=== PATIENT | male | born 2000 | race African-American/Black ===

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

== ENCOUNTER 2022-05-07 11:37 | Emergency (ER) | payer MEDICAID, SELFPAY ==
[2022-05-07 11:44] VITALS: BP 116/74; PULSE 63; RESP 16; TEMP 37; O2SAT 96
[2022-05-07 12:39] LABS: Bilirubin Negative (Negative); Blood Negative (Negative); Clarity Clear (Clear); Glucose Negative (Negative); Ketones Negative (Negative); Leukocyte Esterase Negative (Negative); Nitrite Negative (Negative); Specific Gravity 1.015 (1.005-1.025); Urobilinogen 0.2 EU/dL (Up TO 0.2); pH 6.5 (5-8)
[2022-05-07 12:50] LABS: *AMPHETAMINES SCREEN URINE Negative (Negative); *BARBITURATES SCREEN URINE Negative (Negative); *BENZODIAZEPINES SCREEN URINE Negative (Negative); Cannabinoids THC Positive (Negative); Cocaine Screen,Urine Negative (Negative); METHADONE URINE SCREEN Negative (Negative); OPIATES URINE SCREEN Negative (Negative)
[2022-05-07 12:52] LABS: Tricyclic Antidepressants Negative (Negative)
--- NOTE | 2022-05-07 13:01 | NUR.NOTE ---
Patient laying in bed with hands over ears states, The voices are loud. I offered to close door as it is a bit noisy in ER, patient stated, No, not the real voices. I'm sorry, they're just there. Will notify RN of auditorial hallucinations Nursing Note:
--- NOTE | 2022-05-07 14:24 | ED.GENADUL_ITS ---
Discharge Plan Disposition Patient Disposition: HOME Condition: Stable Discharge Details Clinical Impression: Transgender, Depressive disorder Primary Care Provider: Keith Field ED Provider: Lena Marlow Home Meds and New Rx's Prescriptions: Continued estradiol 1 mg Tablet 1 mg PO 2XD Discharge Instructions Additional Instructions: Please follow-up to establish care with mental health provider Follow-up with [facility] for your medications Please return should you have new or worsening complaints Referrals: [facility] [Provider Group] Discharge Data Discharge Date/Time-TO BE ENTERED AT DEPARTURE: 05/07/22 14:55 Medical Decision Making Patient appears well, she is articulate and insightful She denies specific plan to harm her self She has baseline auditory and visual hallucinations, she states this is not new Was evaluated by mental health and safety plans, will be evaluated daily for NKA chest Stable for discharge home at this time, denies current suicidal ideations are comfortable plan per patient. Fully alert, oriented, decisional capacity throughout the encounter Medical Records Medical records reviewed: Yes I reviewed the patient's medical records. Lab Data Lab results reviewed: Yes I reviewed the patient's lab results. HPI General Date/Time Provider Initiated Documentation: 05/07/22 11:48 . HPI Narrative: This 22-year-old male transitioning to female presents with report of intermittent episodes of self-harm, suicidal ideation, depression, anxiety. Patient states that she has been harming herself by hitting her head on the wall, Herself, and pulling her hair out. She reports that she stopped taking her medication. She does not have a specific plan to take her Lasix per patient. She does have auditory visual hallucinations, she states this is not new. She denies any illicit drug use. She denies any regular alcohol consumption. She denies any current pain complaints. She has not seen a counselor for years per patient. She denies any concerns today. Related Data Home Medications Medication Instructions Recorded Confirmed estradiol 1 mg tablet 1 mg PO 2XD 05/07/22 05/07/22 Allergies Allergy/AdvReac Type Severity Reaction Status Date / Time No Known Allergies Allergy Verified 12/13/21 10:22 General Stated Complaint: PsychEval ERIKA: 2 Review of Systems All systems reviewed & are unremarkable except as noted in HPI and below PFSH All Active Problems (Updated 05/07/22 @ 14:27 by JANELLE To) Back pain (Chronic) Low and mid back pain. + straight leg raise. Referred to Spine clinic. Rectal bleeding (Acute) Painless rectal bleeding even when not engaging in sexual activities. Labs WNL. Referral to GI Transgender (Chronic) Male to female. Prefers she pronoun. NAME: Janet Bipolar disorder (Chronic) Depressive disorder (Chronic 06/08/14) BMI (body mass index), pediatric, 5% to less than 85% for age (Chronic 04/25/16) Attention deficit hyperactivity disorder (Chronic 08/19/14) Medical History (Updated 05/07/22 @ 14:27 by JANELLE To) ADHD (attention deficit hyperactivity disorder) anxiety Asthma Bipolar 1 disorder Major depressive disorder Oppositional defiant disorder Strabismus Surgical History eye surgery Family History Mother Essential hypertension Hyperlipidemia Mental disorder Bipolar disorder dissaocative identity disorder GERD (gastroesophageal reflux disease) Asthma Grandfather Substance abuse Diabetes PGF Alcohol abuse Essential hypertension Mental disorder GERD (gastroesophageal reflux disease) Grandmother Substance abuse Alcohol abuse Essential hypertension Heart disease Mental disorder GERD (gastroesophageal reflux disease) Brother Mental disorder Asthma Other Stroke Social History (Updated 08/30/21 @ 13:10 by Mily Penn RN, RN) Smoking/Tobacco Use Status: Former Tobacco Use Quit Date: 08/22/21 Quit status: considering quitting Smoking risk assessment performed?: Yes Alcohol Intake: current Alcohol Intake frequency: a few times a week Drug use: Never Substance use type: marijuana Household members: other Details: Lives in a transitional housing for physical address, apt. 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 Pets and animals: No Seatbelt use: always Helmet use: Yes Working smoke detector in home: Yes Fire extinguisher in home: Yes Carbon monox detector in home: Yes Do you feel safe at home: Yes Do you feel safe in your relationship?: Yes Exam Const General: cooperative, comfortable and no acute distress Eyes Pupils: PERRL Resp Effort & Inspection: normal respiratory effort Cardio Rate: regular rate Skin General skin exam: no rashes or lesions noted Neuro General: patient alert and patient oriented x3 Psych Appearance: grossly normal and well kempt Speech and Movement: speech and movement normal Attitude: cooperative Thought Process: normal Thought Content: normal Insight: insight good Judgment: fair Course Vital Signs Vital signs: Vital Signs Temperature 37.0 C 05/07/22 11:44 Pulse 63 05/07/22 11:44 Respiratory Rate 16 05/07/22 11:44 Blood Pressure 116/74 05/07/22 11:44 Pulse Oximetry 96 05/07/22 11:44 Temperature 37.0 C 05/07/22 11:44 Temperature Source Oral 05/07/22 11:44 Pulse 63 05/07/22 11:44 Respiratory Rate 16 05/07/22 11:44 Respiratory Effort 05/07/22 11:48 Blood Pressure 116/74 05/07/22 11:44 Blood Pressure Position Sitting 05/07/22 11:44 Pulse Oximetry 96 05/07/22 11:44 Oxygen Delivery Method Room Air 05/07/22 11:44 Oxygen Flow Rate 0 05/07/22 11:44 Pain Level 3 05/07/22 11:44 Lab/Test Results Lab/Test Results: Laboratory Tests Range/Units 05/07/22 05/07/22 12:15 12:15 Urine Color (Yellow) Yellow Urine Clarity (Clear) Clear Urine pH (5-8) 6.5 Ur Specific [place] (1.005-1.025) 1.015 Urine Protein (Negative) mg/dL Negative Urine Ketones (Negative) mg/dL Negative Urine Blood (Negative) Negative Urine Nitrite (Negative) Negative Urine Bilirubin (Negative) Negative Urine Urobilinogen (Up TO 0.2) EU/dL 0.2 Ur Leukocyte Esterase (Negative) Negative Urine Glucose (Negative) mg/dL Negative Urine Opiates Screen (Negative) Negative Urine Methadone Screen (Negative) Negative Ur Barbiturates Screen (Negative) Negative Ur Tricyclics Screen (Negative) Negative Ur Amphetamines Screen (Negative) Negative U Benzodiazepines Scrn (Negative) Negative Urine Cocaine Screen (Negative) Negative Ur THC Screen (Negative) Positive A
--- NOTE | 2022-05-07 14:39 | CMPROGNOTE_ITS ---
- If Service Date Differs Date of service: 05/07/22 Time of Service: 14:39 Care Management Progress Note Janet presents in the ED for depression. They meet with an [facility] crisis screener and are able to enter into a safety plan. They are discharged home and will follow up with [facility] on an outpatient basis. They will check-in by phone with [facility] Emergency Services over the next week and [facility] is making an in-house referral to get Janet connected with a therapist.
--- NOTE | 2022-05-07 14:39 | PDOC.ERCMPRO ---
- If Service Date Differs Date of service: 05/07/22 Time of Service: 14:39 Care Management Progress Note Janet presents in the ED for depression. They meet with an [facility] crisis screener and are able to enter into a safety plan. They are discharged home and will follow up with [facility] on an outpatient basis. They will check-in by phone with [facility] Emergency Services over the next week and [facility] is making an in-house referral to get Janet connected with a therapist.
--- NOTE | 2022-05-07 14:57 | PDOC.MHCN ---
Date of service: 05/07/22 Time of Service: 13:00 PHQ-9 Over the last 2 weeks, how often have you been bothered by any of the following problems? 1. Little interest or pleasure in doing things: nearly every day 2. Feeling down, depressed, or hopeless: nearly every day 3. Trouble falling or staying asleep, or sleeping too much: more than half the days 4. Feeling tired or having little energy: several days 5. Poor appetite or overeating: nearly every day 6. Feeling bad about yourself - or that you are a failure or have let yourself and your family down: nearly every day 7. Trouble concentrating on things, such as reading the newspaper or watching television: more than half the days 8. Moving or speaking so slowly that other people could have noticed? - Or the opposite - being so fidgety or restless that you have been moving around a lot more than usual: more than half the days 9. Thoughts that you would be better off or of hurting yourself in some way: more than half the days Total score: 21 If you checked off any problems, how difficult have these problems made it for you to do your work, take care of things at home, or get along with other people?: very difficult Source: Developed by Drs. Mainor Rosa, Екатерина Middleton, Pola Ibanez and colleagues, with an educational tanya from [employer]. Suicide Severity Rate CSSRS Have you wished you were or wished you could go to sleep and not wake up?: Yes Have you actually had any thoughts of killing yourself?: Yes CSSRS2 Have you been thinking about how you might do this?: No Have you had these thoughts and had some intention of acting on them?: No Have you started to work out or worked out the details of how to kill yourself? Do you intend to carry out this plan?: No CSSRS3 Have you ever done anything, started to do anything or prepared to do anything to end your life?: Yes CSSRS4 Was this within the past three months?: No Screening Score Total Score: 6 Screening: Positive Mental Health Emergency Note Release [facility] release signed:: Yes Reason for Visit Client presented at [facility] via ambulance. Client reports she has been experiencing three-month episode of depression. In the last 2 weeks has the pt presented for ES prior to today?: Unknown Client Information Client is: New (Inactive client) Well Housed: Yes Non Suicidal Self Injury Current: Yes, Client reports engaging in self harming behavior's such as head banging, pulling hair out, and clawing at skin. History: yes, Client reports engaging in NSSIB's when feeling overwhelmed. Client reports she does not plan on engaging in NSSIB's it just happens in the moment. Client reports she usually screams and cries while partaking in self harming. Safety Risk/Harm to Self or Others Current Ideation to Harm Self or Others: No Risk: Does risk to harm exist?: yes. Access to means: No. Risk: Low Risk (Client denies current intent/plan to act on SI/NSSIB's) Duty to warn indicated: No Asssessment/Mental Status Appearance: Disheveled Attitude: Cooperative and Friendly Behavior: Unremarkable Speech: Normal Affect: Flat and Incongurent with mood Mood: Sad, Depressed and Anxious Thought process: Unremarkable Hallucinations: yes, (Client reports seeing/hearing that are not there) Visual (Client reports the last time she expreinced visual hallucinations was 2 years ago. Client reports past hx. of seeing people as well as creatures, they looked terrifying to me.) and Auditory (Client reports hearing voices. Client reports she first started hearing voices around the age of 12. Client reports hearing voices of people she knows. Client reports the voices state negative things and often put her down.) Delusions: No evidence Attention: Unremarkable Perception: Not impaired Orientation: Fully orientated Memory: Intact Insight: Good Judgement: Fair Neurovegetative Symptoms Sleep: Increase (Client reports irregular sleep patterns. Client reports getting anywhere from 1 hr per night to over 10 hrs per night.) Appetitie: Disordered (Client reports typically only eating one meal per day) Interests: No change Energy: Decrease (Client reports lack of motivation completing daily tasks) Libido: Not applicable Impression Prior to speaking with client, this job specification writer gained collateral information from attending JANELLE Liang. Garth reports client has good insight. Client is a 22 y.o. transgender male to female. Client's preferred name is Janet Casas. Client reports she was brought to ED via ambulance after engaging in NSSIB's earlier this am. Both Borches and client reports client harmed herself this morning by banging her head with her fists. Client was assessed via zoom by this job specification writer at [facility] ED. Client disclosed to this job specification writer hx. of depressive episode; Client reports, being in a poor mental state for the past several months. Client described current mood as overwhelmed. Client reports immediately after waking up this am she felt overwhelmed. Client reports she currently is living in a transitional living situation. Client reports she outreached to her systems program manager and disclosed to them, she was genuially not okay, at this time the systems program manager's name, who was not disclosed, advised for her to go to the ED to be screened. Client reports every night recently she has constantly hoping to . Client denies actively endorsing SI/HI/NSSI. Client reports fleeting thoughts of SI when first waking up this am, client reports she immediately outreached to support this am when experiencing SI. Client denies intent/plan regarding SI. Client reports on a self rated scale 0-10, 0 being not at all to 10 being 100%, a 0 on how likely she would be to act on her SI if leaving the ED later today. Client reports, I am not able to act on killing myself, to many people care about me. Client reports past hx of SI. Client reports she first experienced SI when she was in 5th grade. Client reports hx. of NSSIB's; eg. client reports head banging, pulling hair, and clawing at skin when feeling overwhelmed with emotions. Client reports harming self, helps to release her emotions she is feeling. Client reports past hx. of IP MH tx. Client reports being hospitalized on three occasions. Client reports being placed for SI in 5th grade at a psychiatric facility located in [place], and placed twice in 2019 for psychiatric care; both times at [facility] located in [place]. Client reports she has, an unhealthy obsession with inpatient facilities. Client reports when she is receiving IP tx, having the time of her life. However, client reports, during past stays IP, she did not find placement helpful in terms of learning skills she can apply to her current life struggles. This job specification writer asked if client would be interested in exploring OP services rather than IP services at this time. Client is agreeable. Client reports to this job specification writer she feels as if she can keep herself safe if she were to be discharged from the ED on a Proactive safety plan (SP). SP was shared with attending JANELLE Liang after assessement was completed. Client is to complete follow-up zoom session with this job specification writer on 05/08 @ 11 am. The purpose of this meeting is to discuss ways on how to help support client through OP services. Client will also complete daily check-in calls with ES at 10 am through 05/14. Per client's request, referral for therapy services through [facility] will be submitted. Client reports she is not currently followed by a therapist, however would be willing to reengage in services. Copy of SP was provided to ED staff via fax at 2:35 pm to be provided to client per discharge plan. Plan/Disposition Recommended Disposition: PCP/Office visit (Client will attend scheduled zoom session with JHONY Contreras on 05/08 @ 11am) and Therapy (referral will be sumbitted by this job specification writer through [facility]). Plan: Client will be discharged from ED per developed proactive safety plan in place through 05/14 with ES. Person reported agreement to plan: Yes Reports/communication Outcome discussed with: ED/Personnel (JANELLE Liang)
== END 2022-05-07 14:55 | disposition home or self-care (01) ==
PROVIDERS: Emergency Provider Physician Assistant; PCP Pediatrics
DX: F64.9 Gender identity disorder, unspecified (principal); F32.A Depression, unspecified
CPT/HCPCS: 80307; 99285; 81003; 99284